=== PATIENT | male | born 1950 | race Caucasian/White ===

== ENCOUNTER 2018-07-16 14:34 | Outpatient (CLI) | payer MEDICARE, OTHER ==
--- NOTE | 2018-07-16 15:42 | MRI ---
MRI Lower Ext Jt Rt WO Con HISTORY:Lipoma of right lower extremity. Pain x6 years. COMPARISON: None. FINDINGS: MRI examination of the right thigh region was performed. 2 radiopaque markers are seen glen g the lateral aspect of the thigh corresponding to the areas of suspected lipoma. A defined lipoma is not definitely seen in this area subcutaneous fat is present. There is no soft ti ssue nodularity or any suspicious features. Mild atrophy of the hamstring muscles and tensor fascia kyler are noted. The patient has a right hip p rosthesis. IMPRESSION: No evidence of a defined lipoma or soft tissue mass.
== END 2018-07-16 14:35 | disposition home or self-care (01) ==
LOC: TBSIIMAG 14:34
DX: D17.23 Benign lipomatous neoplasm of skin and subcutaneous tissue of right leg (principal)